=== PATIENT | male | born 1945 | race Caucasian/White ===

== ENCOUNTER 2023-11-03 04:27 | Emergency (ER) | payer MEDICARE, OTHER, SELFPAY ==
[2023-11-03 04:28] VITALS: BMI 33.1
[2023-11-03 04:31] VITALS: BP 181/93
[2023-11-03 04:43] VITALS: BP 171/70
[2023-11-03 05:00] VITALS: BP 141/61
--- NOTE | 2023-11-03 05:00 | ED.GENMED ---
History of Present Illness
General
Chief Complaint: Chest Pain
Source: patient
Exam Limitations: none
Time Seen by Provider: 11/03/23 04:42
Nursing documentation reviewed up to this point in time: agreed with
Travel History
Have you had any contact with someone who has COVID-19?: No
Do you have any symptoms of coronavirus? Fever > 100 degrees, chills, cough, shortness of breath, sore throat, loss of taste or smell, muscle aches, or headache?: No
History of Present Illness
History of Present Illness:
This is a 78-year-old gentleman with history of hypertension, hyperlipidemia, asthma, GERD, CAD, remote history of PTCA with stent approximately 20 years ago. He has chronic exertional angina that resolves at rest and follows regularly with
[facility], Dr. Giovani Leger.
He states he underwent cardiac catheterization 1 year ago that showed stable coronary artery disease without need for intervention, recommending continued medical management.
His last cardiology office visit was October 24, at that time rosuvastatin was increased from 10 to 20 mg and twice daily Ranexa was added.
Patient states he awoke tonight around 2:30 AM with substernal chest ache, heaviness that feels similar to his angina but not quite as severe. No other associated symptoms. He did take a full-strength aspirin prior to arrival.
He has also noted very mild lower substernal discomfort in the evenings while lying down or watching TV over the past several nights.
He states chest discomfort/heaviness feels similar to his angina and different than his usual GERD symptoms. He denies coughing or shortness of breath, no diaphoresis nor palpitations, no nausea, no neck nor back pain.
He was also concerned with elevated blood pressure this morning upon waking prompting ED visit.
His blood pressure generally runs in the 120s over 70s.
Currently chest pain-free but does note brief intermittent return of chest heaviness since arrival to the ED.
Past History
Past History
ED Past Medical History: Asthma, CAD, CVA, GERD, HTN and Hypercholesterolemia
ED Past Surgical History: Cardiac (2 cardiac stents-Approximately 20 years ago) and Other (Corneal graft in the right eye, cataract surgery in her right eye, colonoscopy.)
Social History
Tobacco: Non-smoker
Alcohol: Occasional (2-3 light beers per week)
Personal: Single
Living: alone
Employment: Employed
Family History
Family History: Negative Early CAD
Phy Exam
Physical Exam
Physical Exam:
GENERAL: 78-year-old gentleman appears his stated age, bright and alert, pleasant, appears in no acute distress.
EYE: anicteric
NECK: Supple, nontender, no meningismus, no significant adenopathy. No JVD.
ENT: oral mucosa is moist. No rhinorrhea.
CARDIAC: Regular rate and rhythm. no murmur. No chest wall tenderness.
LUNGS: Clear breath sounds bilaterally, no acute respiratory distress, no wheezes/rales/rhonchi
ABDOMEN: Rotund, soft, nondistended, without focal tenderness, no r/g, normoactive BS.
NEUROLOGICAL: Alert and oriented x3, no focal neuro deficits.
SKIN: Warm and dry, normal color, skin intact. Mildly dry skin. Superficial eczematous patch left antecubital fossa.
MUSCULOSKELETAL: No C/C/E. peripheral pulses are full and equal b/l. No palpable tenderness.
PSYCH: Normal and appropriate interaction.
Scores
Heart Score for Chest Pain Patients
STEMI patient?: No
History: Slightly or Non-Suspicious
ECG: Normal
Age: >/= 65 years
Risk Factors: >/= 3 Risk Factors or History of CAD
Troponin: </= Normal Limit
Heart Score for Chest Pain Patients: 4
Heart Score Risk: 20.3% MACE over next 6 weeks
Course
Orders/Labs/Results
Orders:
Orders
11/03/23 04:28
ECG [Electrocardiogram (*1)] Urgent
Reason for Study: Chest Pain
EKG- Treatment ONCE
11/03/23 04:53
Complete Blood Count/With Diff Urgent
Comprehensive Metabolic Panel Urgent
Lipase Urgent
PTT Urgent
Troponin I Urgent
11/03/23 04:57
Amlodipine [Norvasc] 5 mg PO NOW STA
Lisinopril [Zestril] 20 mg PO NOW STA
11/03/23 04:59
Nitroglycerin Ointment [Nitro-Bid] 1 inch TOPICAL NOW STA
11/03/23 05:34
CR Chest - 2 Views Urgent
Comment:
Reason For Exam: acute SSCP
11/03/23 06:41
Troponin I Urgent
Abnormal Lab Results
11/03/23
04:53
RBC 4.12 L 10^6/uL
(4.70-6.10)
Hct 37.1 L %
(39.0-52.0)
MCH 32.3 H pg
(27.0-31.0)
Sodium 133 L mmol/L
(135-145)
BUN 25 H mg/dl
(9-20)
Glucose 112 H mg/dl
(70-99)
11/03/23 04:53
11/03/23 04:53
Vital Signs
Initial and Last Documented VS:
Initial Vital Signs
Temp Pulse Resp BP Pulse Ox
98.2 F 71 16 181/93 99
11/03/23 04:31 11/03/23 04:31 11/03/23 04:31 11/03/23 04:31 11/03/23 04:31
Last Documented Vital Signs
Temp Pulse Resp BP Pulse Ox
98.2 F 65 19 126/65 96
11/03/23 04:31 11/03/23 07:15 11/03/23 07:15 11/03/23 07:00 11/03/23 07:15
MDM/Problems Addressed
Differential Diagnosis Includes:
Concern for acute angina/ACS, other consideration is GERD, accelerated hypertension, less likely aortic dissection.
Moderate systolic hypertension noted, initially 180, upon recheck improving to 170.
EKG shows normal sinus rhythm with 1 PAC, no acute ST-T wave abnormalities and overall similar and unchanged from previous January 2011.
Patient is currently chest pain-free.
Will give his usual morning dose of amlodipine and lisinopril now for hypertension.
Will add Nitropaste.
Will check labs including troponin.
If chest pain returns we will repeat EKG, trial sublingual nitroglycerin and consider IV heparin.
Chronic conditions affecting care: HTN, CAD and Other (Hyperlipidemia, GERD)
*Radiology
Radiology exam reviewed: preliminary read by ED provider (Chest x-ray is unremarkable, unchanged from previous.)
*Pulse Oximetry
Patient hypoxic: no
*EKG
Interpreted by ED Provider?: Yes
Comparison EKG: no changes (Unchanged from previous January 2011)
Rate: normal
Rhythm: sinus and PAC's
[place]: normal axis
Interval: normal interval
QRS Pattern: normal QRS
Ischemia: no ischemia
*[employer] Interpretation
Rate: normal
Interpretation: normal
Rhythm: sinus
*Critical Care Note
Total Time (30-74mins, 75-104mins- exclusive of procedures): Not Applicable
Update Note
Update Note:
11/03/2023 0724 AM
Patient remains pain-free and comfortable.
Hypertension has normalized.
Labs are unremarkable including repeat troponin remains negative/flat.
Chest x-ray is unremarkable.
I suspect chest pain with lying is more GERD related and will discharge to home with recommendations for prompt follow-up with his primary customer solutions specialist as well as PCP.
Continue with current medications including twice daily Ranexa.
Return precautions discussed.
ED Attending Note
-
Portions of this chart may have been created with voice recognition software.� Occasional wrong word or��sound alike� substitutions may have occurred due to the inherent limitations of voice recognition software.
Discharge Plan
Departure
Patient Disposition: Home (Routine Discharge)
Date of Disposition: 11/03/23
Time of Disposition: 07:22
Patient with high blood pressure during this ER visit?: No
Condition: Good
Discharge Problem:
Nonspecific chest pain
Instructions: Chest Pain NON-DH[facility] Photographic Editor Follow Up
Prescriptions:
No Action
multivitamin [Kfz-Grmrzf-Ocnsb] 1 EACH tablet
1 ea PO .ALTERNATES
Patient Comments:
alternates w/ fish oil
rosuvastatin 10 MG tablet
10 mg PO QPM
lisinopril 20 MG tablet
20 mg PO HS
lisinopril-hydrochlorothiazide 1 EACH tablet
1 ea PO DAILY
multivitamin 1 EACH tablet
1 ea PO DAILY
levalbuterol HCl 0.63 MG/3 ML solution for nebulization
0.63 mg inhalation R Q4HPRN PRN (Reason: wheezing)
fluticasone propionate [Flovent HFA] 1 PUFF HFA aerosol inhaler
2 puff inhalation R BID
fexofenadine-pseudoephedrine [Sumaya-D 24 Hour] 1 EACH tablet extended release 24 hr
1 ea PO DAILY
sulfamethoxazole-trimethoprim 1 TABLET tablet
1 tab PO BID Qty: 14 0RF
Referrals:
Deandre Mckeon MD [Family Provider] - Call in 1-3 days for appt
Interventions
Interventions:
*Risk Screen - Suicide Last Done: 11/03/23 04:31
*General Assessment Last Done: 11/03/23 05:26
*Neglect/Abuse Screening Last Done: 11/03/23 04:31
*ED COVID-19 Vaccine History Last Done: 11/03/23 04:31
ED- Cardiac Assessment Last Done: 11/03/23 05:24
Discharge Date and Time
Print Language: ARABIC
[2023-11-03 05:05] LABS: % Basophils 0.7 % (0-2); % Eosinophils 2.6 % (0-6); % Immature Granulocytes 0.3 % (0-0.5); % Lymphocytes 32.4 % (20.5-51.1); % Monocytes 8.7 % (1.7-9.3); % Neutrophils 55.3 % (42.2-75.2); Absolute Basophils 0.1 10^3/uL (0-0.2); Absolute Eosinophils 0.2 10^3/uL (0-0.7); Absolute Lymphocytes 2.3 10^3/uL (1.2-3.4); Absolute Monocytes 0.6 10^3/uL (0.1-0.6); Absolute Neutrophils 3.9 10^3/uL (1.4-6.5); Hematocrit 37.1 % (39.0-52.0); Hemoglobin 13.3 g/dL (13.0-18.0); Mean Corp Hgb Conc. 35.8 g/dL (33.0-37.0); Mean Corpuscular Hgb 32.3 pg (27.0-31.0); Mean Platelet Volume 9.8 fL (7.4-10.4); Nucleated Red Blood Cells % 0 % (-); Platelet Count 213 10^3/uL (130-400); Red Blood Cell Count 4.12 10^6/uL (4.70-6.10); Red Cell Dist. Width 12.9 % (11.5-14.5)
[2023-11-03 05:21] LABS: APTT 30.4 Sec (23.4-35.0)
[2023-11-03] MEDS: NORVASC 5 MG PO (05:21)
[2023-11-03] MEDS: ZESTRIL 20 MG PO (05:21)
[2023-11-03 05:24] LABS: ALT (SGPT) 27 U/L (0-50); AST (SGOT) 29 U/L (17-59); Albumin 4.6 g/dl (3.5-5.0); Alkaline Phosphatase 73 U/L (38-126); Blood Urea Nitrogen 25 mg/dl (9-20); Calcium 9.7 mg/dl (8.4-10.2); Carbon Dioxide 22 mmol/L (22-30); Chloride 103 mmol/L (98-107); Estimated Creatinine Clearance 59 ml/min; Glucose 112 mg/dl (70-99); Lipase 125 U/L (23-300); Sodium 133 mmol/L (135-145); Total Bilirubin 0.7 mg/dl (0.2-1.3); eGFR > 60.00
[2023-11-03 05:29] LABS: Troponin I < 0.012 ng/ml
[2023-11-03] MEDS: NITRO-BID 1 INCH TOPICAL (05:35)
[2023-11-03 06:00] VITALS: BP 127/63
[2023-11-03 07:00] VITALS: BP 126/65
[2023-11-03 07:13] LABS: Troponin I < 0.012 ng/ml
[2023-11-03 08:00] VITALS: BP 113/59
== END 2023-11-03 08:20 | disposition home or self-care (01) ==
LOC: EMR 04:27
PROVIDERS: EMERGENCY PHYSICIAN Emergency Medicine; FAMILY PHYSICIAN Family Medicine
DX: R07.89 Other chest pain (principal); I10 Essential (primary) hypertension; J45.909 Unspecified asthma, uncomplicated; E78.00 Pure hypercholesterolemia, unspecified; K21.9 Gastro-esophageal reflux disease without esophagitis; I25.118 Atherosclerotic heart disease of native coronary artery with other forms of angina pectoris; Z95.5 Presence of coronary angioplasty implant and graft; Z86.73 Personal history of transient ischemic attack (TIA), and cerebral infarction without residual deficits
CPT/HCPCS: 99284; 71046; 80053; 83690; 84484; 85025; 85730; 93005

== ENCOUNTER → 2025-07-11 14:05 | Outpatient (REF) | payer MEDICARE, OTHER, SELFPAY | LOC: RAD 14:05 | PROVIDERS: ATTENDING PHYSICIAN Physician Assistant; FAMILY PHYSICIAN Family Medicine | DX: R07.89 Other chest pain (principal); J45.41 Moderate persistent asthma with (acute) exacerbation; K21.9 Gastro-esophageal reflux disease without esophagitis | CPT/HCPCS: 71046 ==